=== PATIENT | female | born 1980 | race Caucasian/White ===

== ENCOUNTER 2017-11-16 12:36 | Emergency (ER) | payer OTHER ==
[2017-11-16] MEDS ORDERED: Sodium Chloride 0.9% 2.5 ML Syringe FLUSH PRN (12:41)
[2017-11-16] MEDS ORDERED: Sodium Chloride 0.9% 10 ML Syringe FLUSH PRN (12:41)
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
[2017-11-16] MEDS ORDERED: Ketorolac 30 MG/ML SDV IVPUSH ONE (12:49)
[2017-11-16] MEDS ORDERED: Sodium Chloride 0.9% 1,000 ML IV ONE (12:49)
[2017-11-16] MEDS ORDERED: Ondansetron 4 MG/2 ML SDV IVPUSH ONE (13:00)
[2017-11-16 13:31] LABS: CHLORIDE,CL 106 mmol/L (98-110); SODIUM,NA 137 mmol/L (136-146)
[2017-11-16] MEDS ORDERED: Metoclopramide 10 MG/2 ML SDV IV ONE (13:48)
--- NOTE | 2017-11-16 13:56 | CT ---
EXAMINATION: CT cervical spine HISTORY: Pain COMPARISON: None TECHNIQUE: Axial CT images obtained through the cervical spine without contrast. Coronal and sagittal reconstructions obtained. FINDINGS: The cervical spinal alignment is normal. The vertebral body heights and disc spaces appear well-maintained. There is no fracture or dislocation. Bone mineralization is normal. C2 and C3 verte bral bodies are fused. No fracture or acute osseous abnormality. Bone mineralization is normal. No os seous spinal canal or neural foraminal stenosis. Lung apices are clear. Paravertebral soft tissues ot herwise appear normal. IMPRESSION: 1. No acute findings noted within the cervical spine.
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
--- NOTE | 2017-11-16 14:40 | CR ---
EXAMINATION: Right knee HISTORY: Pain COMPARISON: None TECHNIQUE: 3 views FINDINGS/IMPRESSION: There is no acute osseous abnormality, dislocation, or fracture. No joint effus ion or soft tissue swelling. Bone mineralization and joint spaces appear preserved.
--- NOTE | 2017-11-16 15:49 | CT ---
EXAMINATION: CT thoracic and lumbar spine with contrast HISTORY: Pain COMPARISON: None TECHNIQUE: Axial CT images obtained through the thoracic spine following the administration of Isovue -370. Coronal and sagittal reconstructions obtained. FINDINGS: Thoracic spine: Thoracic spinal alignment is normal. The vertebral body heights and disc spaces appea r well-maintained. There is no fracture or acute osseous abnormality. Bone mineralization is normal. Disc spaces appear preserved. No osseous spinal canal or neural foraminal stenosis. Please see CT chidi st abdomen and pelvis for soft tissue findings. Lumbar spine: The lumbar spinal alignment is normal. The vertebral body heights and disc spaces appea r well-maintained. There is no fracture or dislocation. Bone mineralization is normal. Minimal margin al osteophytes are present. SI joints are symmetric. IMPRESSION: 1. No acute findings demonstrated within the thoracic or lumbar spine.
== END 2017-11-16 15:58 | disposition home or self-care (01) ==
LOC: MW.ED 12:36
DX: S39.012A Strain of muscle, fascia and tendon of lower back, initial encounter (principal); S80.01XA Contusion of right knee, initial encounter; S70.01XA Contusion of right hip, initial encounter; S20.212A Contusion of left front wall of thorax, initial encounter; Z88.2 Allergy status to sulfonamides; Z79.899 Other long term (current) drug therapy; V49.9XXA Car occupant (driver) (passenger) injured in unspecified traffic accident, initial encounter
CPT/HCPCS: 36415; 71260; 72125; 73562; 74177; 80053; 84703; 85025; 96361; 96374; 96375; 99284; J1885; J2405; J2765; J7040; 72128-26; 72131-26

== ENCOUNTER 2017-11-18 19:33 | Emergency (ER) | payer OTHER, BC ==
[2017-11-18] MEDS ORDERED: traMADol 50 MG Tab PO ONE (22:58)
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
== END 2017-11-18 23:15 | disposition home or self-care (01) ==
LOC: MW.ED 19:33
DX: S16.1XXD Strain of muscle, fascia and tendon at neck level, subsequent encounter (principal); S80.12XD Contusion of left lower leg, subsequent encounter; F41.9 Anxiety disorder, unspecified; Z88.2 Allergy status to sulfonamides; Z79.899 Other long term (current) drug therapy; V89.2XXD Person injured in unspecified motor-vehicle accident, traffic, subsequent encounter
CPT/HCPCS: 73562; 73590; 96372; 99283; A9270; J2360